=== PATIENT | female | born 1980 | race Caucasian/White ===

== ENCOUNTER → 2018-03-15 13:40 | Outpatient (CLI) | payer OTHER, SELFPAY ==
[2018-03-15 14:30] LABS: Absolute Neutrophil Count 10.2 X10^3/uL (2.0-7.7); Basophil# 0.03 X10^3/uL; Basophil% 0.2 % (0-1); Eosinophil# 0.21 X10^3/uL; Eosinophils% 1.5 % (0-5); Hematocrit 37.8 % (37-47); Hemoglobin 12.4 g/dl (12.0-15.0); Lymphocyte % 19.1 % (19-41); Mean Corp Hgb Conc 32.8 g/gl (32-36); Mean Corpuscular Volume 88.5 fL (81-99); Mean Platelet Vol. 10.9 fl (6.2-12.0); Monocyte# 0.93 X10^3/uL; Monocyte% 6.6 % (0-10); Neutrophil # 10.24 X10^3/uL (2.7-7.7); Neutrophil % 72.4 % (47-70); POSITIVE COUNT NO; POSITIVE DIFFERENTIAL NO; POSITIVE MORPHOLOGY NO; Platelet Count 235 K/mm3 (150-450); RBC Distribution Width CV 12.3 % (11.6-14.6); RBC Distribution Width SD 38.9 fl (35.1-43.9); Red Blood Count 4.27 M/mm3 (4.2-5.4); White Blood Count 14.1 K/mm3 (4.4-11.0)
[2018-03-15 15:45] LABS: HIV - WCH Non-Reactive (Nonreactive); Rubella IgG 260.9 IU/mL
[2018-03-16 03:51] LABS: Rapid Plasmin Reagin (RPR) NONREACTIVE (NONREACTIVE)
[2018-03-16 10:30] LABS: HEPATITIS B SURFACE AG Negative (Negative)
== END ==
PROVIDERS: Family Provider Internal Medicine Nephrology; PCP Internal Medicine Nephrology; Referring Provider Obstetrics & Gynecology; Visit Provider Obstetrics & Gynecology
DX: Z34.90 Encounter for supervision of normal pregnancy, unspecified, unspecified trimester (principal)
CPT/HCPCS: 36415; 85025; 86592; 86703; 86762; 86850; 86900; 87086; 87088; 87340

== ENCOUNTER → 2018-03-15 19:54 | Outpatient (CLI) | payer OTHER, SELFPAY ==
[2018-03-15 22:01] LABS: Chlamydia Trachomatis by PCR Negative (Negative); Neisserai gonorrhoeae by PCR Negative (Negative); Probe Check PASS; Sample Adequacy Control PASS; Specimen Processing Control PASS
== END ==
PROVIDERS: Family Provider Internal Medicine Nephrology; PCP Internal Medicine Nephrology; Referring Provider Obstetrics & Gynecology; Visit Provider Obstetrics & Gynecology
DX: A64 Unspecified sexually transmitted disease (principal)
CPT/HCPCS: 87491; 87591